=== PATIENT | male | born 1965 | race Two or more races ===

== ENCOUNTER 2020-10-01 06:52 | Inpatient (IN) | payer MEDICAID, OTHER ==
[~2020-10-01] VITALS: Ht 157.5 cm; Wt 53.4 kg
--- NOTE | 2020-10-01 06:52 | NUR ---
Code neuro called at 0650, pt showed up at 0652. MD Broderick martinez pt came in the ambulance door. Pt to Ct at 0654 and back to er T3 at 0703.
[2020-10-01] MEDS ORDERED: SODIUM CHLORIDE FLUSH 10ML SYR IVF ONE (07:00)
--- NOTE | 2020-10-01 07:04 | NUR ---
BIB EMS FROM HOME AFTER PT FELL AT 0400 TODAY AND STARTED HAVING LEFT SIDE FACIAL DROOP SLURRED SPEECH, LEFT SIDE ARME AND LEG WEAKNESS. EMS REPORTS BP 237/110, N/V X1 AT 0640 BS 234. PT HX DM/ETOH/SZ LAST DRINK WAS 24 H AGO. PT TREMULOUS.PT MEDICATED PER ORDER.
[2020-10-01] MEDS ORDERED: ONDANSETRON 2MG/ML, 2ML ONE (07:08)
[2020-10-01] MEDS ORDERED: LORazepam 2 MG/ML, 1ML ONE (07:12)
[2020-10-01 07:24] LABS: BASOPHILS % (AUTO) 0 % (0-1); EOSINOPHILS % (AUTO) 0 % (1-7); LYMPHOCYTES % (AUTO) 4 % (22-44); MEAN CORPUSCULAR HEMOGLOBIN 33.8 pg (27.5-34.5); MEAN CORPUSCULAR HGB CONC 34.8 g/dL (33.2-36.2); MEAN PLATELET VOLUME 7.4 fL (7.4-10.4); MONOCYTES % (AUTO) 5 % (2-9); NEUTROPHILS % (AUTO) 90 % (42-75); PLATELET COUNT 226 x10^3/uL (130-400); RED BLOOD COUNT 2.88 x10^6/uL (4.38-5.82); RED CELL DISTRIBUTION WIDTH 12.8 % (9.4-14.8)
[2020-10-01] MEDS ORDERED: LORazepam 2 MG/ML, 1ML IVPush PRN (07:30)
[2020-10-01] MEDS ORDERED: LORazepam 2 MG/ML, 1ML IVPush ONE (07:30)
[2020-10-01] MEDS ORDERED: OMNIPAQUE 350 MG/ML, 100ML BOTTLE ONE (07:33)
[2020-10-01 07:34] LABS: ALANINE AMINOTRANSFERASE 19 U/L (12-78); ALBUMIN 2.8 g/dL (3.4-5.0); ANION GAP 8 mmol/L (5-15); CALCIUM 7.6 mg/dL (8.5-10.1); CHLORIDE 95 mmol/L (98-107)
[2020-10-01] MEDS ORDERED: THIAMINE 100 MG/ML, 2ML ONE (07:38)
[2020-10-01 07:39] LABS: ALKALINE PHOSPHATASE 114 U/L (45-117); BILIRUBIN,TOTAL 0.3 mg/dL (0.2-1.0); CREATININE 1.62 mg/dL (0.7-1.3); TOTAL PROTEIN 6.2 g/dL (6.4-8.2); TROPONIN I < 0.015 ng/mL (0.000-0.045)
--- NOTE | 2020-10-01 07:41 | NUR ---
NEUROSURGERY PAGED FOR DR. WARREN.
[2020-10-01 07:42] LABS: MD SCAN
--- NOTE | 2020-10-01 07:42 | NUR ---
HOB AT 30 DEGREES PER MD BELLE
--- NOTE | 2020-10-01 07:49 | NUR ---
MD ISABEL CARDONA IN ROOM FOR EVAL ON TELADOC
--- NOTE | 2020-10-01 07:51 | NUR ---
TASK RN: NICARDIPINE GTT REQUESTED FROM PHARMACY.
[2020-10-01 07:58] LABS: INTERNATIONAL NORMALIZED RATIO 1.06 (0.93-1.1); PROTHROMBIN TIME 11.3 Seconds (9.6-11.5)
--- NOTE | 2020-10-01 08:16 | NUR ---
PT CALM SLEEPING IN BED
[2020-10-01] MEDS ORDERED: MELATONIN 5 MG TABLET PO PRN (09:00)
[2020-10-01] MEDS ORDERED: LABETALOL 5MG/ML, 20ML IVPush PRN (09:00)
[2020-10-01] MEDS ORDERED: FAMOTIDINE 20 MG/2 ML IVPush SCH (09:00)
[2020-10-01] MEDS ORDERED: THIAMINE 100 MG/ML, 2ML IM SCH (09:00)
[2020-10-01] MEDS ORDERED: PHENOBARBITAL ETOH DETOX PER PHARMACY MC PRN (09:00)
[2020-10-01] MEDS ORDERED: DOCUSATE 100 MG CAPSULE PO PRN (09:00)
[2020-10-01] MEDS ORDERED: ACETAMINOPHEN 325 MG TABLET PO PRN (09:00)
[2020-10-01] MEDS ORDERED: ONDANSETRON 2MG/ML, 2ML IVPush PRN (09:00)
[2020-10-01] MEDS: SODIUM CHLORIDE FLUSH 10ML SYR IVF SCH ×2 (09:21→21:13)
[2020-10-01] MEDS ORDERED: PHENOBARBITAL SODIUM IV ONE (09:30)
[2020-10-01] MEDS ORDERED: SODIUM CHLORIDE 0.9% IV ONE (09:30)
[2020-10-01 09:58] LABS: HCT (SEDRATE) 27.9 % (39.2-51.8)
[2020-10-01 10:11] LABS: MICROSCOPIC AUTO
[2020-10-01 10:22] LABS: AMPHETAMINE SCREEN, URINE Negative (Negative); BARBITURATE SCREEN, URINE Negative (Negative); BENZODIAZEPINE SCREEN, URINE Negative (Negative); CANNABINOID SCREEN, URINE Negative (Negative); COCAINE SCREEN, URINE Negative (Negative); METHADONE SCREEN, URINE Negative (Negative); OPIATE SCREEN, URINE Negative (Negative)
[2020-10-01 10:29] LABS: % IRON SATURATION 29 % (20-55); IRON LEVEL 93 mcg/dL (65-175); TOTAL IRON BINDING CAPACITY 323 mcg/dL (250-450)
[2020-10-01] MEDS: THIAMINE 200 MG in SODIUM CHLORIDE 0.9% 50 ML IV SCH (10:32)
[2020-10-01 10:33] LABS: FREE T4 (FREE THYROXINE) 1.02 ng/dL (0.76-1.46); TROPONIN I < 0.015 ng/mL (0.000-0.045)
[2020-10-01] MEDS: LACTATED RINGERS 1,000 ML IV SCH (10:33)
[2020-10-01] MEDS: INSULIN LISPRO 100 UNITS/ML, PEN SQ-INSULIN SCH ×3 (11:00→21:19)
[2020-10-01] MEDS ORDERED: MAGNESIUM SULFATE PMX 2GM/50ML 50 ML IV ONE (11:00)
[2020-10-01] MEDS ORDERED: POTASSIUM PHOSPHATE 22 MEQ in SODIUM CHLORIDE 0.9% 500 ML IV ONE (11:00)
[2020-10-01 15:33] LABS: TROPONIN I < 0.015 ng/mL (0.000-0.045)
[2020-10-01] MEDS: PHENOBARBITAL SODIUM 65 MG/ML, 1ML IM SCH (17:32)
[2020-10-01] MEDS: FAMOTIDINE 20 MG/2 ML IVPush SCH (21:13)
[2020-10-02] MEDS: LACTATED RINGERS 1,000 ML IV SCH ×3 (00:23→21:01)
[2020-10-02 04:20] LABS: BASOPHILS % (AUTO) 0 % (0-1); EOSINOPHILS % (AUTO) 0 % (1-7); LYMPHOCYTES % (AUTO) 10 % (22-44); MEAN CORPUSCULAR HEMOGLOBIN 33.9 pg (27.5-34.5); MEAN CORPUSCULAR HGB CONC 34.8 g/dL (33.2-36.2); MEAN PLATELET VOLUME 7.4 fL (7.4-10.4); MONOCYTES % (AUTO) 9 % (2-9); NEUTROPHILS % (AUTO) 80 % (42-75); PLATELET COUNT 240 x10^3/uL (130-400); RED BLOOD COUNT 2.98 x10^6/uL (4.38-5.82); RED CELL DISTRIBUTION WIDTH 13.3 % (9.4-14.8)
[2020-10-02 04:26] LABS: MD NO
[2020-10-02 04:37] LABS: ALANINE AMINOTRANSFERASE 20 U/L (12-78); ALBUMIN 2.7 g/dL (3.4-5.0); ANION GAP 11 mmol/L (5-15); CALCIUM 7.5 mg/dL (8.5-10.1); CHLORIDE 104 mmol/L (98-107); CREATININE 1.72 mg/dL (0.7-1.3)
[2020-10-02 04:40] LABS: ALKALINE PHOSPHATASE 117 U/L (45-117); BILIRUBIN,TOTAL 0.5 mg/dL (0.2-1.0); CHOL/HDL RATIO 1.6; CHOLESTEROL, TOTAL 149 mg/dL (140-239); HDL CHOL % 63 % (26-37); HDL CHOLESTEROL (DIRECT) 94 mg/dL (40-60); LDL CHOLESTEROL,CALCULATED 37 mg/dL (54-169); LDL/HDL RATIO 0.4 (0.5-3.0); TOTAL PROTEIN 6.1 g/dL (6.4-8.2); TRIGLYCERIDES 88 mg/dL (50-200); VLDL CHOLESTEROL 18 mg/dL (0-25)
[2020-10-02] MEDS: PHENOBARBITAL SODIUM 65 MG/ML, 1ML IM SCH (06:00)
[2020-10-02] MEDS ORDERED: POTASSIUM CHLORIDE 20 MEQ in SODIUM CHLORIDE 0.9% 250 ML IV ONE (06:30)
[2020-10-02] MEDS: INSULIN LISPRO 100 UNITS/ML, PEN SQ-INSULIN SCH ×4 (06:47→21:00)
[2020-10-02] MEDS: THIAMINE 200 MG in SODIUM CHLORIDE 0.9% 50 ML IV SCH (08:45)
[2020-10-02] MEDS: SODIUM CHLORIDE FLUSH 10ML SYR IVF SCH ×2 (08:46→20:43)
--- NOTE | 2020-10-02 12:40 | NUR ---
Osmolite 1.2 goal: 50 mls/hr on propofol, 55 ml/hr off propofol Addendum: 10/02/20 at [address] Amended: Links added.
[2020-10-02 13:24] LABS: CREATININE,URINE RANDOM 40.1 mg/dL
[2020-10-02] MEDS ORDERED: LIDOCAINE 2% VISCOUS 15 ML UDC MM PRN (14:00)
[2020-10-02] MEDS: hydrALAzine 20 MG/ML, 1ML IVPush PRN ×2 (16:37→20:44)
[2020-10-02] MEDS: METOPROLOL TARTRATE 25 MG TAB PO SCH (17:39)
[2020-10-02 18:04] VITALS: BP 178/82
[2020-10-02] MEDS: FAMOTIDINE 20 MG/2 ML IVPush SCH (20:43)
[2020-10-02] MEDS: ATORVASTATIN 40 MG TABLET PO SCH (21:00)
[2020-10-03] VITALS (9 sets, daily range): BP systolic 148–201; BP diastolic 69–86
[2020-10-03] MEDS: METOPROLOL TARTRATE 25 MG TAB PO SCH ×3 (05:12→21:03)
[2020-10-03 05:31] LABS: CHLORIDE 103 mmol/L (98-107)
[2020-10-03 05:34] LABS: ANION GAP 9 mmol/L (5-15); CALCIUM 8.1 mg/dL (8.5-10.1); CREATININE 1.42 mg/dL (0.7-1.3)
[2020-10-03] MEDS: INSULIN LISPRO 100 UNITS/ML, PEN SQ-INSULIN SCH ×4 (07:00→20:47)
[2020-10-03] MEDS: hydrALAzine 20 MG/ML, 1ML IVPush PRN ×3 (08:07→22:24)
[2020-10-03] MEDS ORDERED: LIDOCAINE GEL 2%, 5ML ONE (08:45)
[2020-10-03] MEDS ORDERED: BENZOCAINE 20% SPRAY 0.5ML ONE (08:45)
[2020-10-03] MEDS: SODIUM CHLORIDE FLUSH 10ML SYR IVF SCH ×2 (09:58→21:03)
[2020-10-03] MEDS: THIAMINE 200 MG in SODIUM CHLORIDE 0.9% 50 ML IV SCH (09:58)
[2020-10-03] MEDS ORDERED: ACETAMINOPHEN 650 MG SUPP PR PRN (12:00)
[2020-10-03] MEDS ORDERED: VALPROATE SODIUM 500 MG in DEXTROSE 5% 100 ML IV ONE (12:00)
[2020-10-03] MEDS ORDERED: POTASSIUM CHLORIDE 40 MEQ in SODIUM CHLORIDE 0.9% 500 ML IV ONE (14:00)
[2020-10-03] MEDS ORDERED: AMLODIPINE 5 MG TABLET PO ONE (15:30)
[2020-10-03] MEDS ORDERED: PHENOBARBITAL 20 MG/5 ML ORAL SOL PO SCH (18:00)
[2020-10-03] MEDS: AMLODIPINE 5 MG TABLET PO SCH (21:03)
[2020-10-03] MEDS: FAMOTIDINE 20 MG/2 ML IVPush SCH (21:03)
[2020-10-03] MEDS: ATORVASTATIN 40 MG TABLET PO SCH (21:03)
[2020-10-04] VITALS (8 sets, daily range): BP systolic 144–189; BP diastolic 71–94
[2020-10-04] MEDS: LACTATED RINGERS 1,000 ML IV SCH ×2 (00:53→19:57)
[2020-10-04 05:18] LABS: BASOPHILS % (AUTO) 0 % (0-1); EOSINOPHILS % (AUTO) 3 % (1-7); LYMPHOCYTES % (AUTO) 12 % (22-44); MEAN CORPUSCULAR HEMOGLOBIN 34.2 pg (27.5-34.5); MEAN CORPUSCULAR HGB CONC 35.6 g/dL (33.2-36.2); MEAN PLATELET VOLUME 7.8 fL (7.4-10.4); MONOCYTES % (AUTO) 9 % (2-9); NEUTROPHILS % (AUTO) 75 % (42-75); PLATELET COUNT 289 x10^3/uL (130-400); RED BLOOD COUNT 3.11 x10^6/uL (4.38-5.82)
[2020-10-04 05:30] LABS: CHLORIDE 104 mmol/L (98-107)
[2020-10-04 05:41] LABS: ANION GAP 10 mmol/L (5-15); CALCIUM 7.7 mg/dL (8.5-10.1); CREATININE 1.38 mg/dL (0.7-1.3)
[2020-10-04 05:42] LABS: ALANINE AMINOTRANSFERASE 17 U/L (12-78); ALBUMIN 2.5 g/dL (3.4-5.0); ALKALINE PHOSPHATASE 109 U/L (45-117); BILIRUBIN,TOTAL 0.5 mg/dL (0.2-1.0); TOTAL PROTEIN 5.9 g/dL (6.4-8.2)
[2020-10-04] MEDS: METOPROLOL TARTRATE 25 MG TAB PO SCH ×2 (05:53→22:40)
[2020-10-04 06:16] LABS: MD SCAN
[2020-10-04] MEDS: INSULIN LISPRO 100 UNITS/ML, PEN SQ-INSULIN SCH ×4 (07:00→21:00)
[2020-10-04] MEDS ORDERED: POTASSIUM CHLORIDE 40 MEQ in SODIUM CHLORIDE 0.9% 500 ML IV ONE (09:30)
[2020-10-04] MEDS ORDERED: MAGNESIUM SULFATE PMX 4GM/100M 100 ML IVPB ONE (09:30)
[2020-10-04] MEDS: SODIUM CHLORIDE FLUSH 10ML SYR IVF SCH ×2 (10:56→19:57)
[2020-10-04] MEDS: THIAMINE 200 MG in SODIUM CHLORIDE 0.9% 50 ML IV SCH (10:56)
[2020-10-04] MEDS: AMLODIPINE 5 MG TABLET PO SCH ×2 (11:39→16:35)
[2020-10-04] MEDS: hydrALAzine 20 MG/ML, 1ML IVPush PRN (18:17)
[2020-10-04] MEDS: ATORVASTATIN 40 MG TABLET PO SCH (22:39)
[2020-10-04] MEDS: FAMOTIDINE 20 MG/2 ML IVPush SCH (22:40)
[2020-10-04] MEDS: VALPROATE SODIUM 500 MG in DEXTROSE 5% 100 ML IV SCH (22:52)
[2020-10-05 00:10] VITALS: BP 167/84
[2020-10-05 05:22] VITALS: BP 156/77
[2020-10-05] MEDS: AMLODIPINE 5 MG TABLET PO SCH ×2 (05:25→17:56)
[2020-10-05 05:52] LABS: BASOPHILS % (AUTO) 0 % (0-1); EOSINOPHILS % (AUTO) 3 % (1-7); LYMPHOCYTES % (AUTO) 12 % (22-44); MEAN CORPUSCULAR HEMOGLOBIN 34.4 pg (27.5-34.5); MEAN CORPUSCULAR HGB CONC 35.4 g/dL (33.2-36.2); MEAN PLATELET VOLUME 7.7 fL (7.4-10.4); MONOCYTES % (AUTO) 9 % (2-9); NEUTROPHILS % (AUTO) 76 % (42-75); PLATELET COUNT 290 x10^3/uL (130-400); RED BLOOD COUNT 3.29 x10^6/uL (4.38-5.82); RED CELL DISTRIBUTION WIDTH 13.2 % (9.4-14.8)
[2020-10-05 05:58] LABS: ANION GAP 8 mmol/L (5-15); CALCIUM 7.7 mg/dL (8.5-10.1); CHLORIDE 105 mmol/L (98-107); CREATININE 1.35 mg/dL (0.7-1.3)
[2020-10-05 06:05] LABS: MD NO
[2020-10-05 07:35] VITALS: BP 157/72
[2020-10-05] MEDS: THIAMINE 200 MG in SODIUM CHLORIDE 0.9% 50 ML IV SCH (08:49)
[2020-10-05] MEDS: INSULIN LISPRO 100 UNITS/ML, PEN SQ-INSULIN SCH ×4 (08:49→20:35)
[2020-10-05] MEDS: LACTATED RINGERS 1,000 ML IV SCH (08:50)
[2020-10-05] MEDS: SODIUM CHLORIDE FLUSH 10ML SYR IVF SCH ×2 (08:50→21:00)
[2020-10-05] MEDS: METOPROLOL TARTRATE 25 MG TAB PO SCH ×2 (08:50→21:01)
[2020-10-05] MEDS ORDERED: POTASSIUM CHLORIDE 40 MEQ in SODIUM CHLORIDE 0.9% 500 ML IV ONE (10:00)
[2020-10-05 13:15] VITALS: BP 181/92
[2020-10-05] MEDS ORDERED: PHENOBARBITAL 20 MG/5 ML ORAL SOL PO SCH (18:00)
[2020-10-05 18:44] VITALS: BP 156/86
[2020-10-05 20:45] VITALS: BP 173/78
[2020-10-05] MEDS: ATORVASTATIN 40 MG TABLET PO SCH (21:00)
[2020-10-05] MEDS: FAMOTIDINE 20 MG/2 ML IVPush SCH (21:00)
[2020-10-05] MEDS: VALPROATE SODIUM 500 MG in DEXTROSE 5% 100 ML IV SCH (22:30)
[2020-10-06 00:19] VITALS: BP 167/81
[2020-10-06] MEDS: LACTATED RINGERS 1,000 ML IV SCH (04:00)
[2020-10-06 05:05] LABS: BASOPHILS % (AUTO) 1 % (0-1); EOSINOPHILS % (AUTO) 3 % (1-7); LYMPHOCYTES % (AUTO) 13 % (22-44); MD NO; MEAN CORPUSCULAR HEMOGLOBIN 34.6 pg (27.5-34.5); MEAN CORPUSCULAR HGB CONC 35.2 g/dL (33.2-36.2); MEAN PLATELET VOLUME 7.8 fL (7.4-10.4); MONOCYTES % (AUTO) 11 % (2-9); NEUTROPHILS % (AUTO) 73 % (42-75); PLATELET COUNT 292 x10^3/uL (130-400); RED BLOOD COUNT 2.83 x10^6/uL (4.38-5.82); RED CELL DISTRIBUTION WIDTH 13.1 % (9.4-14.8)
[2020-10-06 05:21] LABS: CHLORIDE 104 mmol/L (98-107)
[2020-10-06 05:26] LABS: ANION GAP 8 mmol/L (5-15); CALCIUM 7.6 mg/dL (8.5-10.1); CREATININE 1.45 mg/dL (0.7-1.3)
[2020-10-06 05:30] VITALS: BP 170/88
[2020-10-06] MEDS: AMLODIPINE 5 MG TABLET PO SCH ×2 (05:34→18:34)
[2020-10-06] MEDS: INSULIN LISPRO 100 UNITS/ML, PEN SQ-INSULIN SCH ×4 (07:00→21:08)
[2020-10-06 07:16] VITALS: BP 183/88
[2020-10-06] MEDS: THIAMINE 200 MG in SODIUM CHLORIDE 0.9% 50 ML IV SCH (10:09)
[2020-10-06] MEDS: METOPROLOL TARTRATE 25 MG TAB PO SCH ×2 (10:09→21:47)
[2020-10-06] MEDS: SODIUM CHLORIDE FLUSH 10ML SYR IVF SCH ×2 (10:10→21:47)
[2020-10-06 13:07] VITALS: BP 178/80
[2020-10-06] MEDS ORDERED: PHENOBARBITAL 20 MG/5 ML ORAL SOL PO SCH (18:00)
[2020-10-06] MEDS: DOXAZOSIN 1MG TABLET PO SCH (18:35)
[2020-10-06 18:41] VITALS: BP 194/86
[2020-10-06 21:45] VITALS: BP 188/89
[2020-10-06] MEDS: VALPROATE SODIUM 500 MG in DEXTROSE 5% 100 ML IV SCH (21:47)
[2020-10-06] MEDS: ATORVASTATIN 40 MG TABLET PO SCH (21:47)
[2020-10-06] MEDS: FAMOTIDINE 20 MG/2 ML IVPush SCH (21:47)
[2020-10-07] VITALS (7 sets, daily range): BP systolic 134–173; BP diastolic 71–80
[2020-10-07 05:16] LABS: ANION GAP 9 mmol/L (5-15); CALCIUM 7.6 mg/dL (8.5-10.1); CHLORIDE 103 mmol/L (98-107); CREATININE 1.48 mg/dL (0.7-1.3)
[2020-10-07] MEDS: AMLODIPINE 5 MG TABLET PO SCH ×2 (06:54→19:38)
[2020-10-07] MEDS: INSULIN LISPRO 100 UNITS/ML, PEN SQ-INSULIN SCH ×4 (07:00→20:50)
[2020-10-07 08:38] LABS: OCCULT BLOOD POSITIVE (NEGATIVE)
[2020-10-07] MEDS: DOXAZOSIN 1MG TABLET PO SCH (09:02)
[2020-10-07] MEDS: SODIUM CHLORIDE FLUSH 10ML SYR IVF SCH ×2 (09:02→20:50)
[2020-10-07] MEDS: METOPROLOL TARTRATE 25 MG TAB PO SCH ×2 (09:03→20:50)
[2020-10-07] MEDS: THIAMINE 200 MG in SODIUM CHLORIDE 0.9% 50 ML IV SCH (10:16)
[2020-10-07] MEDS ORDERED: DOXAZOSIN 1MG TABLET PO ONE (14:00)
[2020-10-07] MEDS: ATORVASTATIN 40 MG TABLET PO SCH (20:50)
[2020-10-07] MEDS: FAMOTIDINE 20 MG/2 ML IVPush SCH (20:50)
[2020-10-07] MEDS: VALPROATE SODIUM 500 MG in DEXTROSE 5% 100 ML IV SCH (20:52)
[2020-10-08 00:40] VITALS: BP 149/68
[2020-10-08 05:53] LABS: BASOPHILS % (AUTO) 0 % (0-1); EOSINOPHILS % (AUTO) 1 % (1-7); LYMPHOCYTES % (AUTO) 10 % (22-44); MEAN CORPUSCULAR HEMOGLOBIN 35.4 pg (27.5-34.5); MEAN CORPUSCULAR HGB CONC 36.5 g/dL (33.2-36.2); MEAN PLATELET VOLUME 8.1 fL (7.4-10.4); MONOCYTES % (AUTO) 10 % (2-9); NEUTROPHILS % (AUTO) 78 % (42-75); PLATELET COUNT 332 x10^3/uL (130-400); RED BLOOD COUNT 2.78 x10^6/uL (4.38-5.82); RED CELL DISTRIBUTION WIDTH 12.8 % (9.4-14.8)
[2020-10-08 05:57] LABS: ANION GAP 10 mmol/L (5-15); CALCIUM 7.6 mg/dL (8.5-10.1); CHLORIDE 103 mmol/L (98-107)
[2020-10-08 05:58] LABS: CREATININE 1.63 mg/dL (0.7-1.3)
[2020-10-08 06:03] VITALS: BP 154/87
[2020-10-08] MEDS: AMLODIPINE 5 MG TABLET PO SCH (06:03)
[2020-10-08 06:13] LABS: MD NO
[2020-10-08 07:03] VITALS: BP 163/80
[2020-10-08] MEDS: THIAMINE 200 MG in SODIUM CHLORIDE 0.9% 50 ML IV SCH (08:07)
[2020-10-08] MEDS: INSULIN LISPRO 100 UNITS/ML, PEN SQ-INSULIN SCH ×2 (08:07→11:48)
[2020-10-08] MEDS: SODIUM CHLORIDE FLUSH 10ML SYR IVF SCH (08:08)
[2020-10-08] MEDS: METOPROLOL TARTRATE 25 MG TAB PO SCH (08:08)
[2020-10-08] MEDS ORDERED: DOXAZOSIN 1MG TABLET PO SCH (09:00)
[2020-10-08 11:40] VITALS: BP 119/66
[2020-10-08] MEDS ORDERED: HYDR-3343 PO (12:26)
[2020-10-08] MEDS ORDERED: ATOR40TA78 PO (12:26)
[2020-10-08] MEDS ORDERED: DOCU-131 PO (12:26)
[2020-10-08] MEDS ORDERED: VALP500V5 PO (12:26)
[2020-10-08] MEDS ORDERED: METO25TA35 PO (12:26)
[2020-10-08] MEDS ORDERED: ACET325T26 PO (12:26)
[2020-10-08] MEDS ORDERED: AMLO-150 PO (12:26)
[2020-10-08] MEDS ORDERED: DOXA1TAB PO (12:26)
[2020-10-08] MEDS ORDERED: MELA5TAB14 PO (12:26)
[2020-10-08] MEDS ORDERED: VALP500S PO (12:33)
[2020-10-08 13:01] VITALS: BP 103/59
== END 2020-10-08 16:45 | DRG 65 ==
LOC: ED 07:26 → EDIP 08:01 → CCU 09:01 → 4WST 10-02 17:59
PROVIDERS: ADMIT Hospitalist; ATTEND Internal Medicine
DX: I61.3 Nontraumatic intracerebral hemorrhage in brain stem (principal); E87.1 Hypo-osmolality and hyponatremia; I16.1 Hypertensive emergency; G81.94 Hemiplegia, unspecified affecting left nondominant side; I13.0 Hypertensive heart and chronic kidney disease with heart failure and stage 1 through stage 4 chronic kidney disease, or unspecified chronic kidney disease; I50.30 Unspecified diastolic (congestive) heart failure; R26.2 Difficulty in walking, not elsewhere classified; E11.65 Type 2 diabetes mellitus with hyperglycemia; R47.81 Slurred speech; R29.810 Facial weakness; E88.09 Other disorders of plasma-protein metabolism, not elsewhere classified; R29.712 NIHSS score 12; D50.9 Iron deficiency anemia, unspecified; I61.0 Nontraumatic intracerebral hemorrhage in hemisphere, subcortical; E11.22 Type 2 diabetes mellitus with diabetic chronic kidney disease; N18.9 Chronic kidney disease, unspecified; R13.10 Dysphagia, unspecified; K59.00 Constipation, unspecified; G47.00 Insomnia, unspecified; E87.6 Hypokalemia; D72.829 Elevated white blood cell count, unspecified; F10.20 Alcohol dependence, uncomplicated; Y90.0 Blood alcohol level of less than 20 mg/100 ml; Z79.899 Other long term (current) drug therapy
CPT/HCPCS: 36415; 70450; 70496; 70498; 71045; 74018; 74230; 74340; 76770; 80047; 80048; 80053; 80061; 80307; 80320; 81001; 82272; 82570; 82607; 82728; 82962; 83036; 83540; 83550; 83735; 84100; 84156; 84439; 84443; 84484; 85025; 85610; 85651; 85730; 87081; 93005; 93306; 96374; 96375; 96376; 99291; G0378; J2405; J2560; J3411; J3480; Q9967; 92522-GN; G0480; J0360; J1815; J2060; J3475; J7040; J7050; J7120